=== PATIENT | female | born 1935 | race Caucasian/White ===

== ENCOUNTER 2022-08-12 17:20 | Outpatient (CLI) | payer OTHER, SELFPAY | END 2022-08-12 17:21 | disposition home or self-care (01) | LOC: AMB 08-13 12:06 | PROVIDERS: Visit Provider Family Medicine | DX: T14.90XA Injury, unspecified, initial encounter (principal); W19.XXXA Unspecified fall, initial encounter; Y92.129 Unspecified place in nursing home as the place of occurrence of the external cause | CPT/HCPCS: A0425; A0427 ==